=== PATIENT | female | born 1965 | race American Indian/Alaskan Native ===

== ENCOUNTER 2017-06-04 12:59 | Emergency (ER) | payer SELFPAY ==
[2017-06-04 13:10] VITALS: BP 181/117
--- NOTE | 2017-06-07 14:57 | ED Elopement Review ---
ED Pt Elopement review - Call Back decision Pt Call Back Decision: Pt to F/U with PMD
--- NOTE | 2017-06-08 15:54 | Vascular Lab Report ---
Left Lower Extremity Venous Duplex Study: Reason for Exam: Pain and swelling of the left lower extremity. Comments on the Right: A limited duplex study was done of the proximal veins of the right lower extremity. All veins visualized are freely compressible without evidence of internal echogenicity. Flow is spontaneous and phasic throughout. No evidence of acute or chronic thrombus is seen in any of the vessels visualized. Comments on the Left: All veins visualized are freely compressible without evidence of internal echogenicity. Flow is spontaneous and phasic throughout. No evidence of acute or chronic thrombus is seen in any of the vessels visualized. Impression: No evidence of acute or chronic deep venous thrombosis in the left lower extremity. Soft tissue changes in the left popliteal fossa
== END 2017-06-04 16:50 | disposition left against medical advice (07) ==
LOC: ED 12:59
DX: M79.89 Other specified soft tissue disorders (principal); Z53.21 Procedure and treatment not carried out due to patient leaving prior to being seen by health care provider

== ENCOUNTER 2018-02-23 16:05 | Observation (INO) | payer SELFPAY ==
--- NOTE | 2018-02-23 16:48 | Cat Scan Report ---
FINAL REPORT EXAM: CT HEAD/BRAIN WO CON HISTORY: neuro deficits < 6hrs or sx present upon awakening TECHNIQUE: Noncontrast CT axial images of the brain. PRIORS: None. FINDINGS: No parenchymal mass, mass effect, hemorrhage, midline shift or hydrocephalus. No evidence of acute cortical infarct. No abnormal, extra-axial fluid or air collection. Osseous calvarium grossly intact. IMPRESSION: 1. No acute intracranial findings. Please note that MRI is a far more sensitive modality in the evaluation of acute cerebral ischemia, and followup may be warranted.
[2018-02-23 17:01] LABS: Basophils # (Auto) 0.1 K/mm3 (0.0-0.1); Basophils % (Auto) 1.3 % (0.0-1.8); Eosinophils # (Auto) 0.3 K/mm3 (0.0-0.4); Eosinophils % (Auto) 3.2 % (0.0-4.3); Hematocrit 43.7 % (30.3-42.9); Hemoglobin 15.2 gm/dl (10.1-14.3); Lymphocytes # (Auto) 2.6 K/mm3 (1.2-5.4); Mean Corpuscular HGB Conc 35 % (30-34); Mean Corpuscular Hemoglobin 32 pg (28-32); Mean Corpuscular Volume 93 fl (79-97); Monocytes # (Auto) 0.6 K/mm3 (0.0-0.8); Monocytes % (Auto) 7.1 % (0.0-7.3); Platelet Count 223 K/mm3 (140-440); Red Cell Distribution Width 12.8 % (13.2-15.2)
[2018-02-23 17:10] LABS: INR 0.88 (0.87-1.13)
[2018-02-23 17:11] LABS: Partial Thromboplastin Time 34.3 Sec. (24.2-36.6)
[2018-02-23 17:17] LABS: BUN/Creatinine Ratio 18; Blood Urea Nitrogen 11 mg/dL (7-17); Calcium 8.9 mg/dL (8.4-10.2); Hemolysis Index 27
--- NOTE | 2018-02-23 17:28 | Emergency Department Report ---
ED Neuro Deficit HPI - General Chief Complaint: Weakness Stated Complaint: FATIGUE Time Seen by Provider: 02/23/18 17:00 Source: patient Mode of arrival: Ambulatory Limitations: No Limitations - History of Present Illness Initial Comments: At 2 pm, the patient developed right hand weakness/numbness after carrying groceries. She also developed bilateral blurry vision that was worse when she stood up. Patient has been noncompliant with her blood pressure medications for the past 2 weeks. This has never happened before. At time of presentation to the ER, patient has started to feel better. - Related Data Home Medications: Previous Rx's Medication Instructions Recorded Last Taken Type Pravastatin Sodium [Pravastatin] 20 mg PO QHS #30 tablet 02/02/14 Unknown Rx Ranitidine HCl [Zantac] 150 mg PO BID #60 tablet 03/19/14 Unknown Rx Aspirin EC [Aspirin Enteric Coated 81 mg PO QDAY #30 tablet. 12/07/16 Unknown Rx TAB] Glimepiride [Amaryl] 1 mg PO QDDIAB #60 tablet 12/09/16 Unknown Rx Hydrochlorothiazide [HCTZ] 25 mg PO QDAY #30 tablet 12/09/16 Unknown Rx Losartan [Cozaar] 100 mg PO QDAY #60 tablet 12/09/16 Unknown Rx NIFEdipine XL [Procardia Xl] 60 mg PO QDAY #30 tablet 12/09/16 Unknown Rx metFORMIN [Glucophage] 500 mg PO BIDDIAB #60 tablet 12/09/16 Unknown Rx Allergies/Adverse Reactions: Allergies Allergy/AdvReac Type Severity Reaction Status Date / Time No Known Allergies Allergy Unverified 08/09/13 10:18 ED Review of Systems ROS: Stated complaint: FATIGUE Other details as noted in HPI Comment: All other systems reviewed and negative Eyes: vision change Neurological: headache, weakness, numbness ED Past Medical Hx - Past Medical History Hx Hypertension: Yes Hx Congestive Heart Failure: No Hx Diabetes: Yes Hx Asthma: Yes Hx COPD: No Additional medical history: anemia, bronchitis - Surgical History Additional Surgical History: c section x 2 - Social History Smoking Status: Current Every Day Smoker Substance Use Type: None, Other - Medications Home Medications: Home Medications Medication Instructions Recorded Confirmed Last Taken Type Pravastatin Sodium [Pravastatin] 20 mg PO QHS #30 tablet 02/02/14 12/09/16 Unknown Rx Ranitidine HCl [Zantac] 150 mg PO BID #60 tablet 03/19/14 12/09/16 Unknown Rx Aspirin EC [Aspirin Enteric Coated 81 mg PO QDAY #30 tablet. 12/07/16 Unknown Rx TAB] Glimepiride [Amaryl] 1 mg PO QDDIAB #60 tablet 12/09/16 Unknown Rx Hydrochlorothiazide [HCTZ] 25 mg PO QDAY #30 tablet 12/09/16 Unknown Rx Losartan [Cozaar] 100 mg PO QDAY #60 tablet 12/09/16 Unknown Rx NIFEdipine XL [Procardia Xl] 60 mg PO QDAY #30 tablet 12/09/16 Unknown Rx metFORMIN [Glucophage] 500 mg PO BIDDIAB #60 tablet 12/09/16 Unknown Rx ED Neuro Physical Exam - General Limitations: No Limitations General appearance: alert, in no apparent distress Suspected Stroke: Yes - Head Head exam: Present: atraumatic, normocephalic - Eye Eye exam: Present: normal appearance - ENT ENT exam: Present: mucous membranes moist - Neck Neck exam: Present: normal inspection - Respiratory Respiratory exam: Present: normal lung sounds bilaterally. Absent: respiratory distress - Cardiovascular Cardiovascular Exam: Present: regular rate, normal rhythm. Absent: systolic murmur, diastolic murmur, rubs, gallop - GI/Abdominal GI/Abdominal exam: Present: soft, normal bowel sounds - Extremities Exam Extremities exam: Present: normal inspection - Back Exam Back exam: Present: normal inspection - Neurological Exam Neurological exam: Present: alert, oriented X3 - NIHSS Assessment Interval: Baseline 1a. Level of Consciousness: alert 1b. LOC Questions: answers correctly 1c. LOC Commands: performs tasks correctly 2. Best Gaze: normal 3. Visual: no visual loss 4. Facial Palsy: normal symmetrical movement 5b. Motor Arm Right: no drift 5a. Motor Arm Left: no drift 6a. Motor Leg Left: no drift 6b. Motor Leg Right: no drift 7. Limb Ataxia: absent 8. Sensory: normal 9. Best Language: no aphasia 10. Dysarthria: normal 11. Extinction/Inattention: no abnormality Total Score: 0 Stroke Severity: No Stroke Symptoms - Psychiatric Psychiatric exam: Present: normal affect, normal mood - Skin Skin exam: Present: warm, dry, intact, normal color. Absent: rash ED Course Vital Signs 02/23/18 02/23/18 02/23/18 16:21 16:38 16:56 Temperature 98.8 F Pulse Rate 92 H 76 80 Respiratory 16 18 Rate Blood Pressure 190/107 Blood Pressure 184/101 [Left] O2 Sat by Pulse 97 98 Oximetry - Lab Data Result diagrams: 02/23/18 16:44 02/23/18 16:44 Lab Results 02/23/18 02/23/18 02/23/18 Range/Units 16:19 16:44 16:44 WBC 8.0 (4.5-11.0) K/mm3 RBC 4.70 (3.65-5.03) M/mm3 Hgb 15.2 H (10.1-14.3) gm/dl Hct 43.7 H (30.3-42.9) % MCV 93 (79-97) fl MCH 32 (28-32) pg MCHC 35 H (30-34) % RDW 12.8 L (13.2-15.2) % Plt Count 223 (140-440) K/mm3 Lymph % (Auto) 33.0 (13.4-35.0) % [place] % (Auto) 7.1 (0.0-7.3) % Eos % (Auto) 3.2 (0.0-4.3) % Baso % (Auto) 1.3 (0.0-1.8) % Lymph # 2.6 (1.2-5.4) K/mm3 [place] # 0.6 (0.0-0.8) K/mm3 Eos # 0.3 (0.0-0.4) K/mm3 Baso # 0.1 (0.0-0.1) K/mm3 Seg Neutrophils % 55.4 (40.0-70.0) % Seg Neutrophils # 4.4 (1.8-7.7) K/mm3 PT 12.4 (12.2-14.9) Sec. INR 0.88 (0.87-1.13) APTT 34.3 (24.2-36.6) Sec. Thrombin Time (15.1-19.6) Sec. Sodium (137-145) mmol/L Potassium (3.6-5.0) mmol/L Chloride (98-107) mmol/L Carbon Dioxide (22-30) mmol/L Anion Gap mmol/L BUN (7-17) mg/dL Creatinine (0.7-1.2) mg/dL Estimated GFR ml/min BUN/Creatinine Ratio % Glucose (65-100) mg/dL POC Glucose 116 H (70-105) Calcium (8.4-10.2) mg/dL Troponin T (0.00-0.029) ng/mL 02/23/18 02/23/18 Range/Units 16:44 16:44 WBC (4.5-11.0) K/mm3 RBC (3.65-5.03) M/mm3 Hgb (10.1-14.3) gm/dl Hct (30.3-42.9) % MCV (79-97) fl MCH (28-32) pg MCHC (30-34) % RDW (13.2-15.2) % Plt Count (140-440) K/mm3 Lymph % (Auto) (13.4-35.0) % [place] % (Auto) (0.0-7.3) % Eos % (Auto) (0.0-4.3) % Baso % (Auto) (0.0-1.8) % Lymph # (1.2-5.4) K/mm3 [place] # (0.0-0.8) K/mm3 Eos # (0.0-0.4) K/mm3 Baso # (0.0-0.1) K/mm3 Seg Neutrophils % (40.0-70.0) % Seg Neutrophils # (1.8-7.7) K/mm3 PT (12.2-14.9) Sec. INR (0.87-1.13) APTT (24.2-36.6) Sec. Thrombin Time 15.6 (15.1-19.6) Sec. Sodium 142 (137-145) mmol/L Potassium 4.2 (3.6-5.0) mmol/L Chloride 103.5 (98-107) mmol/L Carbon Dioxide 28 (22-30) mmol/L Anion Gap 15 mmol/L BUN 11 (7-17) mg/dL Creatinine 0.6 L (0.7-1.2) mg/dL Estimated GFR > 60 ml/min BUN/Creatinine Ratio 18 % Glucose 101 H (65-100) mg/dL POC Glucose (70-105) Calcium 8.9 (8.4-10.2) mg/dL Troponin T < 0.010 (0.00-0.029) ng/mL - EKG Data -: EKG Interpreted by Me EKG shows normal: sinus rhythm, axis, intervals, QRS complexes, ST-T waves Rate: normal Interpretation: no acute changes - Radiology Data Radiology results: report reviewed - Medical Decision Making 52-year-old female with past medical history of hypertension, diabetes that presents with right hand numbness/weakness. The symptoms have resolved at time of ER presentation. NIH stroke scale was 0. A stroke alert was activated when the patient arrived. CT head was negative. Patient is hypertensive. She was given her home medications since she hasn't taken them in the past 2 weeks. Discussed with the neurologist, who recommended that the patient be admitted for TIA workup. She remained hemodynamically stable in the ER. Critical care attestation.: If time is entered above; I have spent that time in minutes in the direct care of this critically ill patient, excluding procedure time. ED Disposition Clinical Impression: TIA (transient ischemic attack) Disposition: DC-09 OP ADMIT IP TO THIS HOSP Is pt being admited?: No Condition: Stable
[2018-02-23] MEDS ORDERED: PROCARDIA XL PO ONE (17:33)
[2018-02-23] MEDS ORDERED: HCTZ PO ONE (17:33)
[2018-02-23] MEDS ORDERED: COZAAR PO ONE (17:33)
[2018-02-23 18:37] VITALS: BP 198/113
== END 2018-02-23 20:30 | disposition left against medical advice (07) ==
LOC: ED 16:05 → 4A 17:46
PROVIDERS: ADMIT Internal Medicine; ATTEND Internal Medicine
DX: G45.9 Transient cerebral ischemic attack, unspecified (principal); I10 Essential (primary) hypertension; E11.9 Type 2 diabetes mellitus without complications
CPT/HCPCS: 36415; 70450; 80048; 82962; 84484; 85025; 85610; 85670; 85730; 93005; 93010; 99285; G0378

== ENCOUNTER 2018-03-03 07:19 | Emergency (ER) | payer OTHER ==
[2018-03-03 07:41] VITALS: BP 163/104
[2018-03-03 08:14] LABS: Basophils # (Auto) 0.1 K/mm3 (0.0-0.1); Basophils % (Auto) 1.3 % (0.0-1.8); Eosinophils # (Auto) 0.1 K/mm3 (0.0-0.4); Hematocrit 43.9 % (30.3-42.9); Hemoglobin 15.4 gm/dl (10.1-14.3); Lymphocytes # (Auto) 1.3 K/mm3 (1.2-5.4); Lymphocytes % (Auto) 20.5 % (13.4-35.0); Mean Corpuscular HGB Conc 35 % (30-34); Mean Corpuscular Hemoglobin 32 pg (28-32); Mean Corpuscular Volume 92 fl (79-97); Monocytes # (Auto) 0.8 K/mm3 (0.0-0.8); Monocytes % (Auto) 12.2 % (0.0-7.3); Platelet Count 173 K/mm3 (140-440); Red Blood Count 4.76 M/mm3 (3.65-5.03); Red Cell Distribution Width 12.7 % (13.2-15.2)
[2018-03-03 08:36] LABS: Alanine Aminotransferase 20 units/L (7-56); Albumin 3.9 g/dL (3.9-5); BUN/Creatinine Ratio 7; Blood Urea Nitrogen 5 mg/dL (7-17); Calcium 8.5 mg/dL (8.4-10.2); Hemolysis Index 11; Lipase 27 units/L (13-60)
[2018-03-03 08:46] LABS: Bacteria,Urine 1+ /HPF (Negative); Bilirubin,Urine SM (Negative); Blood,Urine NEG (Negative); Color,Urine Amber (Yellow); Mucus,Urine FEW /HPF
[2018-03-03 08:49] LABS: Ictotest,Urine Negative (Negative)
[2018-03-03] MEDS ORDERED: TORADOL IM ONE (09:39)
--- NOTE | 2018-03-03 09:43 | Emergency Department Report ---
ED General Adult HPI - General Chief complaint: Abdominal Pain Stated complaint: PAIN IN BOTTOM STOMACH Time Seen by Provider: 03/03/18 09:33 Source: patient Mode of arrival: Ambulatory Limitations: No Limitations - History of Present Illness Initial comments: Patient is 52 years old female with history of hypertension, diabetes and asthma. Patient presented to the ER complaining of cough, productive with greenish sputum for the last 3 days. Patient stated that she's been having abdominal pain also, minimally suprapubic associated with increase urinary frequency but she stated that she's been drinking a lot of fluid to. She denied any nausea vomiting. Patient also denied any chest pain or shortness of breath. - Related Data Previous Rx's Medication Instructions Recorded Last Taken Type Pravastatin Sodium [Pravastatin] 20 mg PO QHS #30 tablet 02/02/14 Unknown Rx Hydrochlorothiazide [HCTZ] 25 mg PO QDAY #30 tablet 12/09/16 Unknown Rx Losartan [Cozaar] 100 mg PO QDAY #60 tablet 12/09/16 Unknown Rx NIFEdipine XL [Procardia Xl] 60 mg PO QDAY #30 tablet 12/09/16 Unknown Rx metFORMIN [Glucophage] 500 mg PO BIDDIAB #60 tablet 12/09/16 Unknown Rx Allergies Allergy/AdvReac Type Severity Reaction Status Date / Time No Known Allergies Allergy Unverified 08/09/13 10:18 ED Review of Systems ROS: Stated complaint: PAIN IN BOTTOM STOMACH Other details as noted in HPI Comment: All other systems reviewed and negative Constitutional: fever. denies: chills Respiratory: cough. denies: orthopnea, shortness of breath, SOB with exertion, SOB at rest Cardiovascular: denies: chest pain, palpitations, dyspnea on exertion Gastrointestinal: abdominal pain. denies: nausea, vomiting, diarrhea, constipation, hematemesis, melena, hematochezia Genitourinary: denies: urgency, dysuria, frequency, hematuria, discharge Neurological: denies: headache, weakness, numbness, paresthesias, confusion ED Past Medical Hx - Past Medical History Previous Medical History?: Yes Hx Hypertension: Yes Hx Congestive Heart Failure: No Hx Diabetes: Yes Hx Asthma: Yes Hx COPD: No Additional medical history: anemia, bronchitis - Surgical History Past Surgical History?: Yes Additional Surgical History: c section x 2 - Social History Smoking Status: Current Every Day Smoker Substance Use Type: Alcohol, Prescribed - Medications Home Medications: Home Medications Medication Instructions Recorded Confirmed Last Taken Type Pravastatin Sodium [Pravastatin] 20 mg PO QHS #30 tablet 02/02/14 02/23/18 Unknown Rx Hydrochlorothiazide [HCTZ] 25 mg PO QDAY #30 tablet 12/09/16 02/23/18 Unknown Rx Losartan [Cozaar] 100 mg PO QDAY #60 tablet 12/09/16 02/23/18 Unknown Rx NIFEdipine XL [Procardia Xl] 60 mg PO QDAY #30 tablet 12/09/16 02/23/18 Unknown Rx metFORMIN [Glucophage] 500 mg PO BIDDIAB #60 tablet 12/09/16 02/23/18 Unknown Rx ED Physical Exam - General Limitations: No Limitations General appearance: alert, in no apparent distress - Head Head exam: Present: atraumatic, normocephalic, normal inspection - Eye Eye exam: Present: normal appearance - ENT ENT exam: Present: normal exam, mucous membranes moist - Neck Neck exam: Present: normal inspection, full ROM. Absent: tenderness, meningismus, lymphadenopathy, thyromegaly - Respiratory Respiratory exam: Present: normal lung sounds bilaterally. Absent: respiratory distress, wheezes, rales, rhonchi, stridor, accessory muscle use, decreased breath sounds, prolonged expiratory - Cardiovascular Cardiovascular Exam: Present: regular rate, normal rhythm, normal heart sounds - GI/Abdominal GI/Abdominal exam: Present: soft, normal bowel sounds. Absent: distended, tenderness, guarding, rebound, rigid, organomegaly, mass, bruit, pulsatile mass , hernia - Extremities Exam Extremities exam: Present: normal inspection, full ROM, normal capillary refill - Back Exam Back exam: Present: normal inspection, full ROM. Absent: tenderness, CVA tenderness (R), CVA tenderness (L), muscle spasm, paraspinal tenderness, vertebral tenderness, rash noted - Neurological Exam Neurological exam: Present: alert, oriented X3, CN II-XII intact, normal gait, reflexes normal - Skin Skin exam: Present: warm, intact, normal color ED Course Vital Signs 03/03/18 07:38 Temperature 100.2 F H Pulse Rate 115 H Respiratory 20 Rate Blood Pressure 163/104 O2 Sat by Pulse 94 Oximetry ED Medical Decision Making - Lab Data Result diagrams: 03/03/18 07:48 03/03/18 07:48 - Radiology Data Radiology results: report reviewed Referring Physician: CONNIE JAIMES Patient Name: SCOOBY ADEN Date of : 1965 Sex: Female Report Date: 2018-03-03 Report Status: Finalized Findings [facility] [address] [place] [address] XRay Report Signed Patient: SCOOBY ADEN MR#: [id number] : 1965 Acct:[id number] Age/Sex: 52 / F ADM Date: 03/03/18 Loc: ED Attending Dr: Ordering Physician: CONNIE JAIMES Date of Service: 03/03/18 Procedure(s): XR chest routine 2V Accession Number(s): [id number] cc: CONNIE JAIMES Fluoro Time In Minutes: ROUTINE CHEST, TWO VIEWS: HISTORY: Cough, fever. The trachea, heart, mediastinal contour, lung davila and bony thorax are unremarkable. No change since 12/06/16. IMPRESSION: Unremarkable chest x-ray. Transcribed By: TTR Dictated By: JEAN RAZA JR, MD Electronically Authenticated By: JEAN RAZA JR, MD Signed Date/Time: 03/03/18 1031 DD/ 1031 TD/TT: 03/03/18 1031 Critical care attestation.: If time is entered above; I have spent that time in minutes in the direct care of this critically ill patient, excluding procedure time. ED Disposition Clinical Impression: Acute bronchitis Disposition: DC-01 TO HOME OR SELFCARE Is pt being admited?: No Condition: Stable Instructions: Abdominal Pain (ED), Acute Bronchitis (ED) Referrals: PRIMARY CARE, [Primary Care Provider] - 3-5 Days
--- NOTE | 2018-03-03 10:41 | XRay Report ---
ROUTINE CHEST, TWO VIEWS: HISTORY: Cough, fever. The trachea, heart, mediastinal contour, lung davila and bony thorax are unremarkable. No change since 12/06/16. IMPRESSION: Unremarkable chest x-ray.
== END 2018-03-03 11:04 | disposition home or self-care (01) ==
LOC: ED 07:19
DX: J20.9 Acute bronchitis, unspecified (principal); I10 Essential (primary) hypertension; E11.9 Type 2 diabetes mellitus without complications; Z86.2 Personal history of diseases of the blood and blood-forming organs and certain disorders involving the immune mechanism; F17.200 Nicotine dependence, unspecified, uncomplicated
CPT/HCPCS: 36415; 71046; 80053; 81001; 83690; 85025; 96372; 99284; J1885

== ENCOUNTER 2018-06-20 06:19 | Emergency (ER) | payer SELFPAY ==
[2018-06-20] MEDS ORDERED: TYLENOL ONE (07:05)
[2018-06-20 07:14] VITALS: BP 187/118
[2018-06-20 07:56] LABS: Bilirubin,Urine NEG (Negative); Blood,Urine NEG (Negative); Color,Urine Yellow (Yellow); Mucus,Urine FEW /HPF; Protein,Urine <15 mg/dL mg/dL (Negative)
--- NOTE | 2018-06-20 08:08 | Emergency Department Report ---
ED General Adult HPI - General Chief complaint: Back Pain/Injury Stated complaint: BACK PAIN Time Seen by Provider: 06/20/18 08:08 Source: patient Mode of arrival: Ambulatory Limitations: No Limitations - History of Present Illness Initial comments: Patient reports low back and abdominal pain that started this am upon awakening Complaint: back and abdominal pain Onset/Timin -: hour(s) Location: back, abdomen Radiation: non-radiation Severity scale (0 -10): 8 Quality: aching Consistency: constant Improves with: none Worsens with: movement Associated Symptoms: denies other symptoms. denies: confusion, chest pain, cough, diaphoresis, fever/chills, headaches, loss of appetite, malaise, nausea/ vomiting, rash, seizure, shortness of breath, syncope, weakness Treatments Prior to Arrival: none - Related Data Previous Rx's Medication Instructions Recorded Last Taken Type Pravastatin Sodium [Pravastatin] 20 mg PO QHS #30 tablet 02/02/14 Unknown Rx Losartan [Cozaar] 100 mg PO QDAY #60 tablet 12/09/16 Unknown Rx NIFEdipine XL [Procardia Xl] 60 mg PO QDAY #30 tablet 12/09/16 Unknown Rx hydroCHLOROthiazide [HCTZ] 25 mg PO QDAY #30 tablet 12/09/16 Unknown Rx metFORMIN [Glucophage] 500 mg PO BIDDIAB #60 tablet 12/09/16 Unknown Rx guaiFENesin/CODEINE [Robitussin AC] 5 ml PO TID PRN #100 ml 03/03/18 Unknown Rx levoFLOXacin [Levaquin TAB] 500 mg PO QDAY #7 tablet 03/03/18 Unknown Rx Naproxen 500 mg PO BID PRN #20 tablet 06/20/18 Unknown Rx Allergies Allergy/AdvReac Type Severity Reaction Status Date / Time No Known Allergies Allergy Unverified 08/09/13 10:18 ED Review of Systems ROS: Stated complaint: BACK PAIN Other details as noted in HPI Constitutional: denies: chills, fever Eyes: denies: eye pain, eye discharge, vision change ENT: denies: ear pain, throat pain Respiratory: denies: cough, shortness of breath, wheezing Cardiovascular: denies: chest pain, palpitations Endocrine: no symptoms reported Gastrointestinal: abdominal pain. denies: nausea, diarrhea, constipation, hematemesis Genitourinary: denies: urgency, dysuria, discharge Musculoskeletal: back pain. denies: joint swelling, arthralgia Skin: denies: rash, lesions Neurological: denies: headache, weakness, paresthesias Psychiatric: denies: anxiety, depression Hematological/Lymphatic: denies: easy bleeding, easy bruising ED Past Medical Hx - Past Medical History Previous Medical History?: Yes Hx Hypertension: Yes Hx Congestive Heart Failure: No Hx Diabetes: Yes Hx Asthma: Yes Hx COPD: No Additional medical history: anemia, bronchitis - Surgical History Past Surgical History?: Yes Additional Surgical History: c section x 2 - Social History Smoking Status: Current Every Day Smoker Substance Use Type: None - Medications Home Medications: Home Medications Medication Instructions Recorded Confirmed Last Taken Type Pravastatin Sodium [Pravastatin] 20 mg PO QHS #30 tablet 02/02/14 02/23/18 Unknown Rx Losartan [Cozaar] 100 mg PO QDAY #60 tablet 12/09/16 02/23/18 Unknown Rx NIFEdipine XL [Procardia Xl] 60 mg PO QDAY #30 tablet 12/09/16 02/23/18 Unknown Rx hydroCHLOROthiazide [HCTZ] 25 mg PO QDAY #30 tablet 12/09/16 02/23/18 Unknown Rx metFORMIN [Glucophage] 500 mg PO BIDDIAB #60 tablet 12/09/16 02/23/18 Unknown Rx guaiFENesin/CODEINE [Robitussin AC] 5 ml PO TID PRN #100 ml 03/03/18 Unknown Rx levoFLOXacin [Levaquin TAB] 500 mg PO QDAY #7 tablet 03/03/18 Unknown Rx Naproxen 500 mg PO BID PRN #20 tablet 06/20/18 Unknown Rx ED Physical Exam - General Limitations: No Limitations General appearance: alert, in no apparent distress - Head Head exam: Present: atraumatic, normocephalic - ENT ENT exam: Present: normal orophraynx, mucous membranes moist - Neck Neck exam: Present: normal inspection, full ROM. Absent: tenderness, meningismus, lymphadenopathy, thyromegaly - Respiratory Respiratory exam: Present: normal lung sounds bilaterally. Absent: respiratory distress, wheezes, rales, rhonchi, stridor, chest wall tenderness, accessory muscle use, decreased breath sounds, prolonged expiratory - Cardiovascular Cardiovascular Exam: Present: regular rate, normal rhythm, normal heart sounds. Absent: bradycardia, tachycardia, systolic murmur, diastolic murmur - GI/Abdominal GI/Abdominal exam: Present: soft, tenderness (RLQ, suprapubic and LLQ), normal bowel sounds. Absent: guarding, rebound, rigid, diminished bowel sounds, hyperactive bowel sounds, hypoactive bowel sounds, organomegaly, mass, bruit, pulsatile mass, hernia - Extremities Exam Extremities exam: Present: normal inspection, full ROM, normal capillary refill. Absent: tenderness, pedal edema, joint swelling, calf tenderness - Back Exam Back exam: Present: normal inspection, full ROM, tenderness. Absent: CVA tenderness (R), CVA tenderness (L), muscle spasm, paraspinal tenderness, vertebral tenderness - Neurological Exam Neurological exam: Present: alert, oriented X3, CN II-XII intact, normal gait, reflexes normal. Absent: motor sensory deficit - Psychiatric Psychiatric exam: Present: normal affect, normal mood - Skin Skin exam: Present: warm, dry, intact, normal color. Absent: rash ED Course Vital Signs 06/20/18 06:59 Temperature 98 F Pulse Rate 97 H Respiratory 18 Rate Blood Pressure 187/118 O2 Sat by Pulse 99 Oximetry - Reevaluation(s) Reevaluation #1: 06/20/18 08:35 analgesic, laboratory and imaging studies ordered ED Medical Decision Making - Lab Data Result diagrams: 06/20/18 08:12 06/20/18 08:12 Temp Pulse Resp BP Pulse Ox 98 F 97 H 18 187/118 99 06/20/18 06:59 06/20/18 06:59 06/20/18 06:59 06/20/18 06:59 06/20/18 06:59 Lab Results 06/20/18 06/20/18 06/20/18 Range/Units 07:29 08:12 08:12 WBC 6.7 (4.5-11.0) K/mm3 RBC 4.75 (3.65-5.03) M/mm3 Hgb 15.0 H (10.1-14.3) gm/dl Hct 44.5 H (30.3-42.9) % MCV 94 (79-97) fl MCH 32 (28-32) pg MCHC 34 (30-34) % RDW 12.8 L (13.2-15.2) % Plt Count 212 (140-440) K/mm3 Lymph % (Auto) 38.2 H (13.4-35.0) % [place] % (Auto) 8.1 H (0.0-7.3) % Eos % (Auto) 2.8 (0.0-4.3) % Baso % (Auto) 1.2 (0.0-1.8) % Lymph # 2.6 (1.2-5.4) K/mm3 [place] # 0.5 (0.0-0.8) K/mm3 Eos # 0.2 (0.0-0.4) K/mm3 Baso # 0.1 (0.0-0.1) K/mm3 Seg Neutrophils % 49.7 (40.0-70.0) % Seg Neutrophils # 3.3 (1.8-7.7) K/mm3 Sodium 145 (137-145) mmol/L Potassium 4.0 (3.6-5.0) mmol/L Chloride 105.7 (98-107) mmol/L Carbon Dioxide 27 (22-30) mmol/L Anion Gap 16 mmol/L BUN 9 (7-17) mg/dL Creatinine 0.6 L (0.7-1.2) mg/dL Estimated GFR > 60 ml/min BUN/Creatinine Ratio 15 % Glucose 127 H (65-100) mg/dL Calcium 9.5 (8.4-10.2) mg/dL Total Bilirubin 0.30 (0.1-1.2) mg/dL AST 11 (5-40) units/L ALT 13 (7-56) units/L Alkaline Phosphatase 107 (35-129) units/L Total Protein 7.5 (6.3-8.2) g/dL Albumin 4.3 (3.9-5) g/dL Albumin/Globulin Ratio 1.3 % Urine Color Yellow (Yellow) Urine Turbidity Slightly-cloudy (Clear) Urine pH 6.0 (5.0-7.0) Ur Specific [place] 1.016 (1.003-1.030) Urine Protein <15 mg/dl (Negative) mg/dL Urine Glucose (UA) Neg (Negative) mg/dL Urine Ketones Neg (Negative) mg/dL Urine Blood Neg (Negative) Urine Nitrite Neg (Negative) Urine Bilirubin Neg (Negative) Urine Urobilinogen 2.0 (<2.0) mg/dL Ur Leukocyte Esterase Tr (Negative) Urine WBC (Auto) 6.0 (0.0-6.0) /HPF Urine RBC (Auto) 1.0 (0.0-6.0) /HPF U Epithel Cells (Auto) 6.0 (0-13.0) /HPF Urine Mucus Few /HPF Urine Yeast (Budding) Few /HPF Vital Signs 06/20/18 06:59 Temperature 98 F Pulse Rate 97 H Respiratory 18 Rate Blood Pressure 187/118 O2 Sat by Pulse 99 Oximetry - Radiology Data Radiology results: image reviewed HISTORY: abdominal pain. COMPARISON: none. FINDINGS: LIVER: Normal. BILIARY SYSTEM: Normal. PANCREAS: Normal. SPLEEN: Normal. KIDNEYS: Normal. AORTA/IVC: Normal. ASCITES: None. IMPRESSION: Unremarkable exam. - Medical Decision Making During the course of ED, analgesic, laboratory and radiology studies were ordered. All studies were unremarkable. Patient reports pain improvement with Toradol injection. She was sent home with a prescription for Naproxen, instructed to follow up with her PCP this week for reevaluation of elevated blood pressure reading, she verbalized understanding - Differential Diagnosis Abdominal Pain, Back Pain, UTI, Elevated Blood Pressure Reading Critical care attestation.: If time is entered above; I have spent that time in minutes in the direct care of this critically ill patient, excluding procedure time. ED Disposition Clinical Impression: Elevated blood pressure reading Abdominal pain Qualifiers: Abdominal location: lower abdomen, unspecified Qualified Code(s): R10.30 - Lower abdominal pain, unspecified Back pain Qualifiers: Back pain location: low back pain Disposition: - TO HOME OR SELFCARE Is pt being admited?: No Does the pt Need Aspirin: No Condition: Stable Instructions: Abdominal Pain (ED), Back Pain (ED), Hypertension (ED) Additional Instructions: Take medication as directed. Follow up with your PCP this week for evaluation of elevated blood pressure reading Prescriptions: Naproxen 500 mg PO BID PRN #20 tablet PRN Reason: Pain, Moderate (4-6) Referrals: PRIMARY CARE, [Primary Care Provider] - 3-5 Days [facility] [Outside] - 3-5 Days Forms: Work/School Release Form Time of Disposition: 09:49
[2018-06-20 08:24] LABS: Basophils # (Auto) 0.1 K/mm3 (0.0-0.1); Basophils % (Auto) 1.2 % (0.0-1.8); Eosinophils # (Auto) 0.2 K/mm3 (0.0-0.4); Eosinophils % (Auto) 2.8 % (0.0-4.3); Hematocrit 44.5 % (30.3-42.9); Lymphocytes # (Auto) 2.6 K/mm3 (1.2-5.4); Lymphocytes % (Auto) 38.2 % (13.4-35.0); Mean Corpuscular HGB Conc 34 % (30-34); Mean Corpuscular Hemoglobin 32 pg (28-32); Mean Corpuscular Volume 94 fl (79-97); Monocytes # (Auto) 0.5 K/mm3 (0.0-0.8); Monocytes % (Auto) 8.1 % (0.0-7.3); Platelet Count 212 K/mm3 (140-440); Red Blood Count 4.75 M/mm3 (3.65-5.03); Red Cell Distribution Width 12.8 % (13.2-15.2)
[2018-06-20 08:58] LABS: Alanine Aminotransferase 13 units/L (7-56); Albumin 4.3 g/dL (3.9-5); BUN/Creatinine Ratio 15; Blood Urea Nitrogen 9 mg/dL (7-17); Calcium 9.5 mg/dL (8.4-10.2); Hemolysis Index 10
[2018-06-20] MEDS ORDERED: TORADOL IM ONE (09:13)
--- NOTE | 2018-06-20 09:27 | Ultrasound Report ---
ULTRASOUND ABDOMEN COMPLETE: TECHNIQUE: Transabdominal ultrasound with color Doppler interrogation. HISTORY: abdominal pain. COMPARISON: none. FINDINGS: LIVER: Normal. BILIARY SYSTEM: Normal. PANCREAS: Normal. SPLEEN: Normal. KIDNEYS: Normal. AORTA/IVC: Normal. ASCITES: None. IMPRESSION: Unremarkable exam.
== END 2018-06-20 10:06 | disposition home or self-care (01) ==
LOC: ED 06:19
DX: R10.30 Lower abdominal pain, unspecified (principal); M54.5 Low back pain; R03.0 Elevated blood-pressure reading, without diagnosis of hypertension; I10 Essential (primary) hypertension; E11.9 Type 2 diabetes mellitus without complications; F17.200 Nicotine dependence, unspecified, uncomplicated; J45.909 Unspecified asthma, uncomplicated; Z86.2 Personal history of diseases of the blood and blood-forming organs and certain disorders involving the immune mechanism; Z79.899 Other long term (current) drug therapy
CPT/HCPCS: 36415; 76700; 80053; 81001; 85025; 96372; 99284; J1885

== ENCOUNTER 2019-09-07 16:42 | Emergency (ER) | payer SELFPAY ==
--- NOTE | 2019-09-07 16:59 | Emergency Department Report ---
Blank Doc - Documentation Documentation: 53-year-old female that presents with dizziness, headache, and uncontrolled HTN. Patient stated she is not compliant with BP meds. This initial assessment/diagnostic orders/clinical plan/treatment(s) is/are subject to change based on patient's health status, clinical progression and re- assessment by fellow clinical providers in the ED. Further treatment and workup at subsequent clinical providers discretion. Patient/guardians urged not to elope from the ED as their condition may be serious if not clinically assessed and managed. Initial orders include: 1- Patient sent to [facility] for further evaluation and treatment 2- labs 3- UA 4- EKG
[2019-09-07 17:58] LABS: Basophils # (Auto) 0.1 K/mm3 (0.0-0.1); Basophils % (Auto) 0.8 % (0.0-1.8); Eosinophils # (Auto) 0.2 K/mm3 (0.0-0.4); Eosinophils % (Auto) 2.9 % (0.0-4.3); Hematocrit 40.4 % (30.3-42.9); Hemoglobin 13.6 gm/dl (10.1-14.3); Lymphocytes # (Auto) 2.9 K/mm3 (1.2-5.4); Lymphocytes % (Auto) 37.4 % (13.4-35.0); Mean Corpuscular HGB Conc 34 % (30-34); Mean Corpuscular Volume 95 fl (79-97); Monocytes # (Auto) 0.7 K/mm3 (0.0-0.8); Monocytes % (Auto) 8.6 % (0.0-7.3); Platelet Count 204 K/mm3 (140-440); Red Blood Count 4.25 M/mm3 (3.65-5.03)
[2019-09-07 18:10] LABS: BUN/Creatinine Ratio 22; Blood Urea Nitrogen 11 mg/dL (7-17); Calcium 8.7 mg/dL (8.4-10.2); Hemolysis Index 12
[2019-09-07] MEDS ORDERED: ACETAMINOPHEN 500 MG TAB PO ONE (19:58)
[2019-09-07] MEDS ORDERED: ASPIRIN 325 MG TAB PO ONE (19:58)
[2019-09-07 20:17] LABS: Bacteria,Urine 1+ /HPF (Negative); Bilirubin,Urine NEG (Negative); Blood,Urine NEG (Negative); Color,Urine Yellow (Yellow); Mucus,Urine FEW /HPF; Protein,Urine <15 mg/dL mg/dL (Negative); WBC,Urine < 1.0 /HPF (0.0-6.0)
[2019-09-07] MEDS ORDERED: amLODIPine 5 MG TAB PO ONE (21:15)
--- NOTE | 2019-09-07 21:58 | Emergency Department Report ---
ED General Adult HPI - General Chief complaint: High BP Stated complaint: BLOOD PRESSURE CHECK Time Seen by Provider: 09/07/19 17:00 Source: patient Mode of arrival: Ambulatory Limitations: No Limitations - History of Present Illness Initial comments: Patient is a 53-year-old -Spanish female with a history of hypertension and [id number] diabetes who presents to the ED with complaint of acute onset persistent headache and lightheadedness for the last 12 hours intermittently. Patient states that she has not taken her blood pressure medications for over 2 months after she ran out of worked she was taking, and the prescription she received are too expensive for her to afford. Patient denies chest pain, shortness of breath, dizziness, nausea, vomiting, syncope, palpitations, neck pain or abdominal pain and change in vision. MD Complaint: Lightheadedness, elevated BP; headache -: Sudden, hour(s) (12) Location: head Radiation: non-radiation Severity scale (0 -10): 4 Quality: aching, dull Consistency: constant Improves with: none Worsens with: none Associated Symptoms: denies other symptoms, headaches. denies: confusion, chest pain, cough, diaphoresis, fever/chills, loss of appetite, malaise, nausea/vomiting, rash, seizure, shortness of breath, syncope, weakness, other Treatments Prior to Arrival: none - Related Data Previous Rx's Medication Instructions Recorded Last Taken Type Pravastatin Sodium [Pravastatin] 20 mg PO QHS #30 tablet 02/02/14 Unknown Rx Losartan [Cozaar] 100 mg PO QDAY #60 tablet 12/09/16 Unknown Rx NIFEdipine XL [Procardia Xl] 60 mg PO QDAY #30 tablet 12/09/16 Unknown Rx hydroCHLOROthiazide [HCTZ] 25 mg PO QDAY #30 tablet 12/09/16 Unknown Rx metFORMIN [Glucophage] 500 mg PO BIDDIAB #60 tablet 12/09/16 Unknown Rx guaiFENesin/CODEINE [Robitussin AC] 5 ml PO TID PRN #100 ml 03/03/18 Unknown Rx levoFLOXacin [Levaquin TAB] 500 mg PO QDAY #7 tablet 03/03/18 Unknown Rx Cyclobenzaprine [Flexeril 10 MG 10 mg PO QHS #30 tablet 08/17/18 Unknown Rx TAB] Naproxen 500 mg PO BID PRN #20 tablet 08/17/18 Unknown Rx Ibuprofen [Motrin] 600 mg PO Q8H PRN #20 tablet 09/07/19 Unknown Rx Lisinopril/Hydrochlorothiazide 1 tab PO QDAY #30 tab 09/07/19 Unknown Rx [Zestoretic 20-25 mg] Allergies Allergy/AdvReac Type Severity Reaction Status Date / Time No Known Allergies Allergy Unverified 08/09/13 10:18 ED Review of Systems ROS: Stated complaint: BLOOD PRESSURE CHECK Other details as noted in HPI Constitutional: denies: chills, fever Eyes: denies: eye pain, eye discharge, vision change ENT: denies: ear pain, throat pain Respiratory: denies: cough, shortness of breath, wheezing Cardiovascular: denies: chest pain, palpitations Endocrine: no symptoms reported Gastrointestinal: denies: abdominal pain, nausea, diarrhea Genitourinary: denies: urgency, dysuria, discharge Musculoskeletal: denies: back pain, joint swelling, arthralgia Skin: denies: rash, lesions Neurological: headache, other (Lightheadedness). denies: weakness, paresthesias Psychiatric: anxiety. denies: depression Hematological/Lymphatic: denies: easy bleeding, easy bruising ED Past Medical Hx - Past Medical History Previous Medical History?: Yes Hx Hypertension: Yes Hx Congestive Heart Failure: No Hx Diabetes: Yes Hx Asthma: Yes Hx COPD: No Additional medical history: anemia, bronchitis - Surgical History Past Surgical History?: Yes Additional Surgical History: c section x 2 - Social History Smoking Status: Current Every Day Smoker Substance Use Type: None - Medications Home Medications: Home Medications Medication Instructions Recorded Confirmed Last Taken Type Pravastatin Sodium [Pravastatin] 20 mg PO QHS #30 tablet 02/02/14 02/23/18 Unknown Rx Losartan [Cozaar] 100 mg PO QDAY #60 tablet 12/09/16 02/23/18 Unknown Rx NIFEdipine XL [Procardia Xl] 60 mg PO QDAY #30 tablet 12/09/16 02/23/18 Unknown Rx hydroCHLOROthiazide [HCTZ] 25 mg PO QDAY #30 tablet 12/09/16 02/23/18 Unknown Rx metFORMIN [Glucophage] 500 mg PO BIDDIAB #60 tablet 12/09/16 02/23/18 Unknown Rx guaiFENesin/CODEINE [Robitussin AC] 5 ml PO TID PRN #100 ml 03/03/18 Unknown Rx levoFLOXacin [Levaquin TAB] 500 mg PO QDAY #7 tablet 03/03/18 Unknown Rx Cyclobenzaprine [Flexeril 10 MG 10 mg PO QHS #30 tablet 08/17/18 Unknown Rx TAB] Naproxen 500 mg PO BID PRN #20 tablet 08/17/18 Unknown Rx Ibuprofen [Motrin] 600 mg PO Q8H PRN #20 tablet 09/07/19 Unknown Rx Lisinopril/Hydrochlorothiazide 1 tab PO QDAY #30 tab 09/07/19 Unknown Rx [Zestoretic 20-25 mg] ED Physical Exam - General Limitations: No Limitations General appearance: alert, in no apparent distress - Head Head exam: Present: atraumatic, normocephalic, normal inspection - Eye Eye exam: Present: normal appearance, PERRL, EOMI Pupils: Present: normal accommodation - ENT ENT exam: Present: normal exam, normal orophraynx, mucous membranes moist, TM's normal bilaterally, normal external ear exam - Neck Neck exam: Present: normal inspection, full ROM - Respiratory Respiratory exam: Present: normal lung sounds bilaterally. Absent: respiratory distress, wheezes, rales, rhonchi, chest wall tenderness, accessory muscle use, prolonged expiratory - Cardiovascular Cardiovascular Exam: Present: normal rhythm, tachycardia. Absent: systolic murmur, diastolic murmur, rubs, gallop - GI/Abdominal GI/Abdominal exam: Present: soft, normal bowel sounds. Absent: tenderness, rigid, hypoactive bowel sounds, organomegaly - Extremities Exam Extremities exam: Present: normal inspection, full ROM, normal capillary refill - Back Exam Back exam: Present: normal inspection, full ROM. Absent: tenderness, CVA tenderness (L), muscle spasm, vertebral tenderness - Neurological Exam Neurological exam: Present: alert, oriented X3, CN II-XII intact, normal gait, reflexes normal - Psychiatric Psychiatric exam: Present: normal affect, normal mood - Skin Skin exam: Present: warm, dry, intact, normal color. Absent: rash ED Course Vital Signs 09/07/19 09/07/19 09/07/19 16:58 20:16 21:27 Temperature 98.5 F 97.6 F Pulse Rate 100 H 76 Respiratory 18 18 20 Rate Blood Pressure 196/104 Blood Pressure 192/88 [Left] O2 Sat by Pulse 98 98 Oximetry ED Medical Decision Making - Lab Data Result diagrams: 09/07/19 17:35 09/07/19 17:35 - EKG Data EKG shows normal: sinus rhythm Rate: normal - EKG Data 09/07/19 22:00 EKG shows normal sinus rhythm with ventricular rate of 79 beats per minute and no ST or T-wave abnormalities. - Medical Decision Making This is a 53-year-old female who presented to the ED with lightheadedness and headache and uncontrolled hypertension because of noncompliance with medication. In the ED, patient is alert and oriented 3 in destruction and distress but extremely anxious. EKG shows normal sinus rhythm with a ventricular rate of [address] or T-wave abnormalities. Lab test results were reviewed and are nonactionable including troponin levels. Patient was treated in the ED with Norvasc 10 mg by mouth 1. Patient declined chest x-ray. On reevaluation, patient's headache resolved as well as lightheadedness. Patient was discharged home on prescription for lisinopril-HCTZ 20 mg-25 mg daily and was advised to follow-up with [facility] to establish care and for reevaluation. Patient was advised to return to the ED immediately if symptoms get worse. - Differential Diagnosis SAH; CAD; Hypertensive crisis; Dehydration; Hyperglycemia Critical care attestation.: If time is entered above; I have spent that time in minutes in the direct care of this critically ill patient, excluding procedure time. ED Disposition Clinical Impression: Uncontrolled stage 2 hypertension Headache, tension-type Qualifiers: Headache chronicity pattern: acute headache Intractability: not intractable Qualified Code(s): G44.209 - Tension-type headache, unspecified, not intractable Disposition: DC-01 TO HOME OR SELFCARE Is pt being admited?: No Does the pt Need Aspirin: No Condition: Stable Instructions: Hypertension (ED), Acute Headache (ED) Additional Instructions: Take medications for hypertension as advised, follow up with [facility] to establish care. Return to the ED immediately if symptoms get worse. Prescriptions: Ibuprofen [Motrin] 600 mg PO Q8H PRN #20 tablet PRN Reason: Pain Lisinopril/Hydrochlorothiazide [Zestoretic 20-25 mg] 1 tab PO QDAY #30 tab Referrals: [facility] [Outside] - 3-5 Days Time of Disposition: 21:53 Print Language: ARMENIAN
[2019-09-07 22:49] VITALS: BP 188/99
== END 2019-09-07 22:00 | disposition home or self-care (01) ==
LOC: ED 16:42
DX: I10 Essential (primary) hypertension (principal); G44.209 Tension-type headache, unspecified, not intractable; E11.9 Type 2 diabetes mellitus without complications; J45.909 Unspecified asthma, uncomplicated; F17.200 Nicotine dependence, unspecified, uncomplicated
CPT/HCPCS: 36415; 80048; 81001; 84484; 85025; 93005; 93010; 99283

== ENCOUNTER 2020-04-11 14:56 | Emergency (ER) | payer SELFPAY | END 2020-04-11 16:00 | disposition left against medical advice (07) | LOC: ED 14:56 | DX: H92.09 Otalgia, unspecified ear (principal); Z53.21 Procedure and treatment not carried out due to patient leaving prior to being seen by health care provider ==

== ENCOUNTER 2020-07-09 10:06 | Emergency (ER) | payer SELFPAY ==
[2020-07-09 10:15] VITALS: BP 159/96
[2020-07-09] MEDS ORDERED: DIPHtheria,PERTUSSIS(ACELL),TETANUS VACCINE/PF 0.5 ML VIAL IM ONE (12:17)
[2020-07-09] MEDS ORDERED: HYDROcodone/ACETAMINOPHEN 5-325 MG TAB PO ONE (12:17)
[2020-07-09] MEDS ORDERED: NEOMY 3.5 MG/BACIT 400 UNITS/POLY B 5000 UNITS/GM OINT PACKET TP ONE (12:21)
--- NOTE | 2020-07-09 12:24 | Emergency Department Report ---
ED Fall HPI - General Chief Complaint: Fall Stated Complaint: SWOLLEN MOUTH Time Seen by Provider: 07/09/20 11:32 Source: patient Mode of arrival: Ambulatory - History of Present Illness Initial Comments: Patient is a 54-year-old female presents emergency room with complaints of a fall that occurred yesterday around 2:30 PM. Patient states that she was chased by a dog and she fell and hit her face against the concrete. she denies being bit by the dog. She has abrasions to the end of her nose, above the lip, and to the lower lip. She states that also knocked out one of her teeth. Patient states that she also has abrasions to the bilateral knees. She states that she is ambulatory without difficulty and is able to fully move the knees. She is unsure of her last tetanus immunization. She denies any loss of consciousness, vision changes, numbness, weakness, bowel or bladder incontinence, any other injury. She has a past medical history of hypertension and diabetes. No allergies to medications. - Related Data Previous Rx's Medication Instructions Recorded Last Taken Type Pravastatin Sodium [Pravastatin] 20 mg PO QHS #30 tablet 02/02/14 Unknown Rx Losartan [Cozaar] 100 mg PO QDAY #60 tablet 12/09/16 Unknown Rx NIFEdipine XL [Procardia Xl] 60 mg PO QDAY #30 tablet 12/09/16 Unknown Rx hydroCHLOROthiazide [HCTZ] 25 mg PO QDAY #30 tablet 12/09/16 Unknown Rx metFORMIN [Glucophage] 500 mg PO BIDDIAB #60 tablet 12/09/16 Unknown Rx guaiFENesin/CODEINE [Robitussin AC] 5 ml PO TID PRN #100 ml 03/03/18 Unknown Rx levoFLOXacin [Levaquin TAB] 500 mg PO QDAY #7 tablet 03/03/18 Unknown Rx Cyclobenzaprine [Flexeril 10 MG 10 mg PO QHS #30 tablet 08/17/18 Unknown Rx TAB] Naproxen 500 mg PO BID PRN #20 tablet 08/17/18 Unknown Rx Ibuprofen [Motrin] 600 mg PO Q8H PRN #20 tablet 09/07/19 Unknown Rx Lisinopril/Hydrochlorothiazide 1 tab PO QDAY #30 tab 09/07/19 Unknown Rx [Zestoretic 20-25 mg] Acetaminophen [Tylenol] 650 mg PO Q8HR PRN #20 capsule 07/09/20 Unknown Rx Neomycin/Bacitracin/Polymyxinb 1 applicatio TP BID #14 oint...g. 07/09/20 Unknown Rx [Triple Antibiotic Ointment] cephALEXin [Keflex] 500 mg PO QID 7 Days #28 cap 07/09/20 Unknown Rx traMADoL [Ultram 50 MG tab] 50 mg PO Q6HR PRN #10 tablet 07/09/20 Unknown Rx Allergies Allergy/AdvReac Type Severity Reaction Status Date / Time No Known Allergies Allergy Unverified 08/09/13 10:18 ED Review of Systems ROS: Stated complaint: SWOLLEN MOUTH Other details as noted in HPI Comment: All other systems reviewed and negative ED Past Medical Hx - Past Medical History Previous Medical History?: Yes Hx Hypertension: Yes Hx Congestive Heart Failure: No Hx Diabetes: Yes Hx Asthma: Yes Hx COPD: No Additional medical history: anemia, bronchitis - Surgical History Past Surgical History?: No Additional Surgical History: c section x 2 - Social History Smoking Status: Current Every Day Smoker Substance Use Type: None - Medications Home Medications: Home Medications Medication Instructions Recorded Confirmed Last Taken Type Pravastatin Sodium [Pravastatin] 20 mg PO QHS #30 tablet 02/02/14 02/23/18 Unknown Rx Losartan [Cozaar] 100 mg PO QDAY #60 tablet 12/09/16 02/23/18 Unknown Rx NIFEdipine XL [Procardia Xl] 60 mg PO QDAY #30 tablet 12/09/16 02/23/18 Unknown Rx hydroCHLOROthiazide [HCTZ] 25 mg PO QDAY #30 tablet 12/09/16 02/23/18 Unknown Rx metFORMIN [Glucophage] 500 mg PO BIDDIAB #60 tablet 12/09/16 02/23/18 Unknown Rx guaiFENesin/CODEINE [Robitussin AC] 5 ml PO TID PRN #100 ml 03/03/18 Unknown Rx levoFLOXacin [Levaquin TAB] 500 mg PO QDAY #7 tablet 03/03/18 Unknown Rx Cyclobenzaprine [Flexeril 10 MG 10 mg PO QHS #30 tablet 08/17/18 Unknown Rx TAB] Naproxen 500 mg PO BID PRN #20 tablet 08/17/18 Unknown Rx Ibuprofen [Motrin] 600 mg PO Q8H PRN #20 tablet 09/07/19 Unknown Rx Lisinopril/Hydrochlorothiazide 1 tab PO QDAY #30 tab 09/07/19 Unknown Rx [Zestoretic 20-25 mg] Acetaminophen [Tylenol] 650 mg PO Q8HR PRN #20 capsule 07/09/20 Unknown Rx Neomycin/Bacitracin/Polymyxinb 1 applicatio TP BID #14 oint...g. 07/09/20 Unknown Rx [Triple Antibiotic Ointment] cephALEXin [Keflex] 500 mg PO QID 7 Days #28 cap 07/09/20 Unknown Rx traMADoL [Ultram 50 MG tab] 50 mg PO Q6HR PRN #10 tablet 07/09/20 Unknown Rx ED Physical Exam - General Limitations: No Limitations General appearance: alert, in no apparent distress - Head Head exam: Present: other (abrasion present to the distal end of the nose, no nasal bone ttp, septum is midline, no epistaxis, abrasion present above the lip, abrasion present to the lower lip with purulent drainage and erythema surrounding the lower lip with mild edema present, there is a missing central incisor with irritation of the adjacent gumline) - Eye Eye exam: Present: normal appearance, PERRL, EOMI. Absent: periorbital swelling, periorbital tenderness - ENT ENT exam: Present: mucous membranes moist - Neck Neck exam: Present: normal inspection, full ROM. Absent: tenderness - Respiratory Respiratory exam: Absent: respiratory distress, accessory muscle use - Extremities Exam Extremities exam: Present: other (small very superficial abrasions present to the bilateral knees, no bony ttp of the bilateral knees, FROM of the BLE, neurovascularly intact) - Neurological Exam Neurological exam: Present: alert, oriented X3, CN II-XII intact, normal gait. Absent: motor sensory deficit - Psychiatric Psychiatric exam: Present: normal affect, normal mood - Skin Skin exam: Present: warm, dry ED Course Vital Signs 07/09/20 10:11 Temperature 98.7 F Pulse Rate 119 H Respiratory 20 Rate Blood Pressure 159/96 [Right] O2 Sat by Pulse 98 Oximetry ED Medical Decision Making - Medical Decision Making Patient is a 54-year-old female presents emergency room with complaints of a fall that occurred yesterday around 2:30 PM. Patient states that she was chased by a dog and she fell and hit her face against the concrete. she denies being bit by the dog. She has abrasions to the end of her nose, above the lip, and to the lower lip. She states that also knocked out one of her teeth. Patient states that she also has abrasions to the bilateral knees. She states that she is ambulatory without difficulty and is able to fully move the knees. She is unsure of her last tetanus immunization. She denies any loss of consciousness, vision changes, numbness, weakness, bowel or bladder incontinence, any other injury. She has a past medical history of hypertension and diabetes. No allergies to medications. initial vitals with tachycardia which improved upon repeat. on exam: abrasion present to the distal end of the nose, no nasal bone ttp, septum is midline, no epistaxis, abrasion present above the lip, abrasion present to the lower lip with purulent drainage and erythema surrounding the lower lip with mild edema present, there is a missing central incisor with irritation of the adjacent gumline, small very superficial abrasions present to the bilateral knees, no bony ttp of the bilateral knees, FROM of the BLE, neurovascularly intact. No signs of skull or bony facial injury. Nexus criteria negative, C-spine can be cleared clinically. [place] CT head rule is 0, CT head imaging not recommended. Wound care performed by otorhinolaryngologist. Patient given pain medication and tetanus immunization. Patient will be given prescription for Keflex, tramadol, Tylenol, triple antibiotic ointment. Advised patient to please use medication as prescribed. Please only use the antibiotic ointment on the skin but do not use in the mouth. Do not drive or operate heavy machinery while taking severe pain medication. Please keep areas clean, dry, covered. May wash with antibacterial soap and water and pat dry. No hot tub, no pool, no soaking in water. Showering is fine. Follow-up with a primary care doctor. Follow-up with a dentist. Return to the emergency room for any new or worsening symptoms. Critical care attestation.: If time is entered above; I have spent that time in minutes in the direct care o f this critically ill patient, excluding procedure time. ED Disposition Clinical Impression: Multiple abrasions Cellulitis Qualifiers: Site of cellulitis: mouth Qualified Code(s): K12.2 - Cellulitis and abscess of mouth Dental trauma Qualifiers: Encounter type: initial encounter Qualified Code(s): S09.93XA - Unspecified injury of face, initial encounter Disposition: DC-01 TO HOME OR SELFCARE Is pt being admited?: No Does the pt Need Aspirin: No Condition: Stable Instructions: Abrasion (ED), Cellulitis (ED), Acute dental trauma (ED) Additional Instructions: please use medication as prescribed. Please only use the antibiotic ointment on the skin but do not use in the mouth. Do not drive or operate heavy machinery while taking severe pain medication. Please keep areas clean, dry, covered. May wash with antibacterial soap and water and pat dry. No hot tub, no pool, no soaking in water. Showering is fine. Follow-up with a primary care doctor. Follow-up with a dentist. Return to the emergency room for any new or worsening symptoms. Prescriptions: cephALEXin [Keflex] 500 mg PO QID 7 Days #28 cap Neomycin/Bacitracin/Polymyxinb [Triple Antibiotic Ointment] 1 applicatio TP BID #14 oint...g. Acetaminophen [Tylenol] 650 mg PO Q8HR PRN #20 capsule PRN Reason: Pain, Moderate (4-6) traMADoL [Ultram 50 MG tab] 50 mg PO Q6HR PRN #10 tablet PRN Reason: Pain , Severe (7-10) Referrals: GENEVA OTERO MD [Staff Physician] - 2-3 Days [facility] [Provider Group] - 2-3 Days [facility] [Outside] - 2-3 Days [facility] [Outside] - 2-3 Days Time of Disposition: 12:27 Print Language: [place]
== END 2020-07-09 12:41 | disposition home or self-care (01) ==
LOC: ED 10:06
DX: S80.212A Abrasion, left knee, initial encounter (principal); S80.211A Abrasion, right knee, initial encounter; S09.93XA Unspecified injury of face, initial encounter; K12.2 Cellulitis and abscess of mouth; I10 Essential (primary) hypertension; E11.9 Type 2 diabetes mellitus without complications; J45.909 Unspecified asthma, uncomplicated; Z86.2 Personal history of diseases of the blood and blood-forming organs and certain disorders involving the immune mechanism; F17.200 Nicotine dependence, unspecified, uncomplicated; Z79.899 Other long term (current) drug therapy; X58.XXXA Exposure to other specified factors, initial encounter; Y93.89 Activity, other specified; Y92.89 Other specified places as the place of occurrence of the external cause; Y99.8 Other external cause status
CPT/HCPCS: 90471; 90715; 99282; A6250

== ENCOUNTER 2020-07-28 17:06 | Emergency (ER) | payer OTHER ==
[2020-07-28] MEDS ORDERED: cloNIDine 0.1 MG TAB PO ONE (17:36)
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
[2020-07-28 20:56] VITALS: BP 178/90
[2020-07-28] MEDS ORDERED: IBUPROFEN 800 MG TAB PO ONE (21:29)
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
== END 2020-07-28 22:04 | disposition home or self-care (01) ==
LOC: ED 17:06
DX: I10 Essential (primary) hypertension (principal); E11.9 Type 2 diabetes mellitus without complications; J45.909 Unspecified asthma, uncomplicated; D64.9 Anemia, unspecified; F17.200 Nicotine dependence, unspecified, uncomplicated; Z98.890 Other specified postprocedural states; Z79.899 Other long term (current) drug therapy; V49.59XA Passenger injured in collision with other motor vehicles in traffic accident, initial encounter; Y92.410 Unspecified street and highway as the place of occurrence of the external cause; Y93.89 Activity, other specified; Y99.8 Other external cause status
CPT/HCPCS: 82962

== ENCOUNTER 2020-08-31 11:03 | Emergency (ER) | payer SELFPAY ==
[2020-08-31 11:10] VITALS: BP 176/103
[2020-08-31 12:44] LABS: Bilirubin,Urine NEG (Negative); Blood,Urine NEG (Negative); Color,Urine Yellow (Yellow); Hyaline Casts,Urine 1 /LPF; Mucus,Urine FEW /HPF; Protein,Urine <15 mg/dL mg/dL (Negative)
[2020-08-31 12:49] LABS: Alanine Aminotransferase 21 units/L (7-56); Albumin 4.2 g/dL (3.9-5); Blood Urea Nitrogen 10 mg/dL (7-17); Calcium 9.5 mg/dL (8.4-10.2); Hemolysis Index 7
[2020-08-31 13:06] LABS: Basophils # (Auto) 0.1 K/mm3 (0.0-0.1); Basophils % (Auto) 1.4 % (0.0-1.8); Eosinophils # (Auto) 0.1 K/mm3 (0.0-0.4); Eosinophils % (Auto) 1.4 % (0.0-4.3); Hematocrit 44.4 % (30.3-42.9); Lymphocytes # (Auto) 2.2 K/mm3 (1.2-5.4); Mean Corpuscular HGB Conc 34 % (30-34); Mean Corpuscular Volume 94 fl (79-97); Monocytes # (Auto) 0.5 K/mm3 (0.0-0.8); Monocytes % (Auto) 7.9 % (0.0-7.3); Platelet Count 237 K/mm3 (140-440); Red Blood Count 4.72 M/mm3 (3.65-5.03); Red Cell Distribution Width 12.4 % (13.2-15.2)
[2020-08-31 13:14] LABS: BUN/Creatinine Ratio 14
--- NOTE | 2020-08-31 13:48 | Emergency Department Report ---
ED Abdominal Pain HPI - General Chief Complaint: Abdominal Pain Stated Complaint: ABD PAINS Time Seen by Provider: 08/31/20 12:13 Source: patient Mode of arrival: Ambulatory Limitations: No Limitations - History of Present Illness Initial Comments: This is a 54-year-old -Mexican female in no apparent distress she reports abdominal soreness and pain around her umbilical region started on Wednesday evening associated with nausea and 2 episodes of vomiting. She denies diarrhea no fever no chills. her last bowel movement this morning was normal h er past medical history is of diabetes and hypertension. MD Complaint: abdominal pain -: Sudden Location: periumbilical Migration to: periumbilical Quality: aching Consistency: constant Improves With: nothing Worsens With: nothing Associated Symptoms: vomiting. denies: nausea, diarrhea, fever, chills, constipation, dysuria, hematemesis, hematochezia, melena, hematuria, anorexia, syncope - Related Data Previous Rx's Medication Instructions Recorded Last Taken Type Pravastatin Sodium [Pravastatin] 20 mg PO QHS #30 tablet 02/02/14 Unknown Rx Losartan [Cozaar] 100 mg PO QDAY #60 tablet 12/09/16 Unknown Rx NIFEdipine XL [Procardia Xl] 60 mg PO QDAY #30 tablet 12/09/16 Unknown Rx hydroCHLOROthiazide [HCTZ] 25 mg PO QDAY #30 tablet 12/09/16 Unknown Rx metFORMIN [Glucophage] 500 mg PO BIDDIAB #60 tablet 12/09/16 Unknown Rx guaiFENesin/CODEINE [Robitussin AC] 5 ml PO TID PRN #100 ml 03/03/18 Unknown Rx levoFLOXacin [Levaquin TAB] 500 mg PO QDAY #7 tablet 03/03/18 Unknown Rx Cyclobenzaprine [Flexeril 10 MG 10 mg PO QHS #30 tablet 08/17/18 Unknown Rx TAB] Naproxen 500 mg PO BID PRN #20 tablet 08/17/18 Unknown Rx Ibuprofen [Motrin] 600 mg PO Q8H PRN #20 tablet 09/07/19 Unknown Rx Lisinopril/Hydrochlorothiazide 1 tab PO QDAY #30 tab 09/07/19 Unknown Rx [Zestoretic 20-25 mg] Acetaminophen [Tylenol] 650 mg PO Q8HR PRN #20 capsule 07/09/20 Unknown Rx Neomycin/Bacitracin/Polymyxinb 1 applicatio TP BID #14 oint...g. 07/09/20 Unknown Rx [Triple Antibiotic Ointment] cephALEXin [Keflex] 500 mg PO QID 7 Days #28 cap 07/09/20 Unknown Rx traMADoL [Ultram 50 MG tab] 50 mg PO Q6HR PRN #10 tablet 07/09/20 Unknown Rx Naproxen [Naprosyn] 500 mg PO BID #20 tablet 07/28/20 Unknown Rx methOCARBAMOL [Robaxin TAB] 500 mg PO Q8HR PRN #20 tablet 07/28/20 Unknown Rx Ondansetron [Zofran Odt] 4 mg PO Q8HR #12 tab.rapdis 08/31/20 Unknown Rx Allergies Allergy/AdvReac Type Severity Reaction Status Date / Time No Known Allergies Allergy Unverified 08/09/13 10:18 ED Review of Systems ROS: Stated complaint: ABD PAINS Other details as noted in HPI Comment: All other systems reviewed and negative Constitutional: no symptoms reported. denies: chills, fever, malaise ENT: denies: ear pain, throat pain, dental pain Respiratory: denies: cough, orthopnea, shortness of breath, SOB with exertion, SOB at rest Cardiovascular: denies: chest pain, palpitations, dyspnea on exertion, edema, syncope, paroxysmal nocturnal dyspnea Endocrine: no symptoms reported Gastrointestinal: abdominal pain, nausea, vomiting. denies: diarrhea, consti pation, hematemesis, melena Genitourinary: denies: urgency, dysuria, hematuria, discharge Musculoskeletal: denies: back pain, joint swelling, arthralgia Skin: denies: rash, lesions Psychiatric: denies: anxiety, auditory hallucinations ED Past Medical Hx - Past Medical History Hx Hypertension: Yes Hx Congestive Heart Failure: No Hx Diabetes: Yes Hx Asthma: Yes Hx COPD: No Additional medical history: anemia, bronchitis - Surgical History Additional Surgical History: c section x 2 - Social History Smoking Status: Current Every Day Smoker - Medications Home Medications: Home Medications Medication Instructions Recorded Confirmed Last Taken Type Pravastatin Sodium [Pravastatin] 20 mg PO QHS #30 tablet 02/02/14 02/23/18 Unknown Rx Losartan [Cozaar] 100 mg PO QDAY #60 tablet 12/09/16 02/23/18 Unknown Rx NIFEdipine XL [Procardia Xl] 60 mg PO QDAY #30 tablet 12/09/16 02/23/18 Unknown Rx hydroCHLOROthiazide [HCTZ] 25 mg PO QDAY #30 tablet 12/09/16 02/23/18 Unknown Rx metFORMIN [Glucophage] 500 mg PO BIDDIAB #60 tablet 12/09/16 02/23/18 Unknown Rx guaiFENesin/CODEINE [Robitussin AC] 5 ml PO TID PRN #100 ml 03/03/18 Unknown Rx levoFLOXacin [Levaquin TAB] 500 mg PO QDAY #7 tablet 03/03/18 Unknown Rx Cyclobenzaprine [Flexeril 10 MG 10 mg PO QHS #30 tablet 08/17/18 Unknown Rx TAB] Naproxen 500 mg PO BID PRN #20 tablet 08/17/18 Unknown Rx Ibuprofen [Motrin] 600 mg PO Q8H PRN #20 tablet 09/07/19 Unknown Rx Lisinopril/Hydrochlorothiazide 1 tab PO QDAY #30 tab 09/07/19 Unknown Rx [Zestoretic 20-25 mg] Acetaminophen [Tylenol] 650 mg PO Q8HR PRN #20 capsule 07/09/20 Unknown Rx Neomycin/Bacitracin/Polymyxinb 1 applicatio TP BID #14 oint...g. 07/09/20 Unknown Rx [Triple Antibiotic Ointment] cephALEXin [Keflex] 500 mg PO QID 7 Days #28 cap 07/09/20 Unknown Rx traMADoL [Ultram 50 MG tab] 50 mg PO Q6HR PRN #10 tablet 07/09/20 Unknown Rx Naproxen [Naprosyn] 500 mg PO BID #20 tablet 07/28/20 Unknown Rx methOCARBAMOL [Robaxin TAB] 500 mg PO Q8HR PRN #20 tablet 07/28/20 Unknown Rx Ondansetron [Zofran Odt] 4 mg PO Q8HR #12 tab.rapdis 08/31/20 Unknown Rx ED Physical Exam - General Limitations: No Limitations General appearance: alert, in no apparent distress - Head Head exam: Present: atraumatic - Eye Eye exam: Present: normal appearance. Absent: conjunctival injection - ENT ENT exam: Present: mucous membranes moist - Neck Neck exam: Present: normal inspection. Absent: lymphadenopathy - Respiratory Respiratory exam: Present: normal lung sounds bilaterally. Absent: respiratory distress, wheezes, rales, rhonchi - Cardiovascular Cardiovascular Exam: Present: regular rate, normal heart sounds - GI/Abdominal GI/Abdominal exam: Present: soft, hyperactive bowel sounds. Absent: distended, tenderness, guarding, rebound, rigid, organomegaly, mass, hernia - Extremities Exam Extremities exam: Present: normal inspection - Back Exam Back exam: Present: normal inspection - Neurological Exam Neurological exam: Present: alert, oriented X3 - Psychiatric Psychiatric exam: Present: normal affect - Skin Skin exam: Present: warm, dry, intact. Absent: rash ED Course Vital Signs 08/31/20 11:08 Temperature 97.9 F Pulse Rate 111 H Respiratory 19 Rate Blood Pressure 176/103 O2 Sat by Pulse 94 Oximetry - Reevaluation(s) Reevaluation #1: 08/31/20 14:50 Patient ambulatory in the ly in no acute distress doing well results reviewed with patient ED Medical Decision Making - Lab Data Result diagrams: 08/31/20 11:41 08/31/20 11:41 - Radiology Data Radiology results: report reviewed CT of the abdomen pelvis FINDINGS: LOWER CHEST: No significant abnormality. LIVER: No significant abnormality. GALLBLADDER: No significant abnormality. BILE DUCTS: No significant abnormality. PANCREAS: No significant abnormality. SPLEEN: No significant abnormality. ADRENALS: No significant abnormality. RIGHT KIDNEY / URETER: No significant abnormality. LEFT KIDNEY / URETER: No significant abnormality. STOMACH / SMALL BOWEL: No significant abnormality. COLON: No significant abnormality. APPENDIX: No significant abnormality. PERITONEUM: No free fluid. No free air. No fluid collection. LYMPH NODES: No significant adenopathy. AORTA / ARTERIES: Mild atherosclerotic calcification without acute abnormality. IVC / VEINS: No significant abnormality. URINARY BLADDER: No significant abnormality. REPRODUCTIVE ORGANS: No significant abnormality. ADDITIONAL FINDINGS: None. - Medical Decision Making 54-year-old female with complaint of abdominal pain her labs were within normal limits CT of her abdomen and pelvis with no acute findings and her pain was relieved. While in the emergency room patient had no vomiting no diarrhea and able to tolerate liquids Critical Care Time: No Critical care attestation.: If time is entered above; I have spent that time in minutes in the direct care of this critically ill patient, excluding procedure time. ED Disposition Clinical Impression: Gastroenteritis Abdominal pain Qualifiers: Abdominal location: generalized Qualified Code(s): R10.84 - Generalized abdominal pain Disposition: -01 TO HOME OR SELFCARE Is pt being admited?: No Does the pt Need Aspirin: No Condition: Stable Instructions: Viral Gastroenteritis, Adult, Abdominal Pain, Adult, Easy-to-Re ad, Abdominal Pain (ED) Additional Instructions: Have a bland diet for the next 2 days. Your diet should include clear liquids apple juice , broth stay away from cheese and milk. Follow-up with your doctor in 3 to 5 days. Return to the emergency room for worsening pain fever inability to keep food down excessive vomiting or excessive diarrhea Prescriptions: Ondansetron [Zofran Odt] 4 mg PO Q8HR #12 tab.rapdis Referrals: PRIMARY CAREMD [Primary Care Provider] - 3-5 Days GENEVA OTERO MD [Staff Physician] - 3-5 Days Forms: Work/School Release Form(ED) Time of Disposition: 14:53
--- NOTE | 2020-08-31 14:13 | Cat Scan Report ---
CT ABDOMEN AND PELVIS WITHOUT CONTRAST INDICATION / CLINICAL INFORMATION: MAIN. TECHNIQUE: Axial CT images were obtained through the abdomen and pelvis without IV contrast. All CT scans at [facility] location are performed using CT dose reduction for ALARA by means of automated exposure control. COMPARISON: None available. FINDINGS: LOWER CHEST: No significant abnormality. LIVER: No significant abnormality. GALLBLADDER: No significant abnormality. BILE DUCTS: No significant abnormality. PANCREAS: No significant abnormality. SPLEEN: No significant abnormality. ADRENALS: No significant abnormality. RIGHT KIDNEY / URETER: No significant abnormality. LEFT KIDNEY / URETER: No significant abnormality. STOMACH / SMALL BOWEL: No significant abnormality. COLON: No significant abnormality. APPENDIX: No significant abnormality. PERITONEUM: No free fluid. No free air. No fluid collection. LYMPH NODES: No significant adenopathy. AORTA / ARTERIES: Mild atherosclerotic calcification without acute abnormality. IVC / VEINS: No significant abnormality. URINARY BLADDER: No significant abnormality. REPRODUCTIVE ORGANS: No significant abnormality. ADDITIONAL FINDINGS: None. SKELETAL SYSTEM: Mild multilevel degenerative changes are noted of the spine. No aggressive osseous l esions. IMPRESSION: 1. No acute inflammatory process of the abdomen or pelvis. Signer Name: Holger Ojeda MD Signed: 08/31/2020 2:09 PM Workstation Name: [id number]
[2020-08-31] MEDS ORDERED: HYDROcodone/ACETAMINOPHEN 5-325 MG TAB PO ONE (14:50)
== END 2020-08-31 15:02 | disposition home or self-care (01) ==
LOC: ED 11:03
DX: K52.89 Other specified noninfective gastroenteritis and colitis (principal); I10 Essential (primary) hypertension; E11.9 Type 2 diabetes mellitus without complications; J45.909 Unspecified asthma, uncomplicated; F17.200 Nicotine dependence, unspecified, uncomplicated; Z86.2 Personal history of diseases of the blood and blood-forming organs and certain disorders involving the immune mechanism
CPT/HCPCS: 36415; 74176; 80053; 81001; 83690; 85025

== ENCOUNTER 2020-09-29 14:36 | Emergency (ER) | payer SELFPAY | END 2020-09-29 18:38 | disposition left against medical advice (07) | LOC: ED 14:36 | DX: R41.82 Altered mental status, unspecified (principal); Z53.21 Procedure and treatment not carried out due to patient leaving prior to being seen by health care provider ==

== ENCOUNTER 2020-09-30 12:49 | Emergency (ER) | payer SELFPAY ==
[2020-09-30 13:16] VITALS: BP 183/106
== END 2020-09-30 14:00 ==
LOC: ED 12:49
DX: I10 Essential (primary) hypertension (principal); Z53.21 Procedure and treatment not carried out due to patient leaving prior to being seen by health care provider

== ENCOUNTER 2021-05-05 11:48 | Emergency (ER) | payer SELFPAY ==
[2021-05-05 12:13] VITALS: BP 163/96
[2021-05-05] MEDS ORDERED: ASPIRIN 325 MG TAB PO ONE (12:14)
--- NOTE | 2021-05-05 12:33 | XRay Report ---
CHEST 2 VIEWS INDICATION / CLINICAL INFORMATION: Chest pain. COMPARISON: None available. FINDINGS: SUPPORT DEVICES: None. HEART / MEDIASTINUM: No significant abnormality. LUNGS / PLEURA: No significant pulmonary or pleural abnormality. No pneumothorax. ADDITIONAL FINDINGS: No significant additional findings. IMPRESSION: 1. No acute findings. Signer Name: Mina Rivera MD Signed: 05/05/2021 12:29 PM Workstation Name: [id number]
--- NOTE | 2021-05-05 12:34 | Event Note ---
ED Screening Note Date of service: 05/05/21 Time: 12:19 ED Screening Note: Patient presents to the ER today with complaints of diffuse chest pain which started yesterday with associated cough and shortness of breath. She states that the chest pain is worse when she coughs. She reports subjective fever, nausea and vomiting. She denies any wheezing. She states that she took both for Covid 19 vaccines ([employer] ) 2 months ago. Past medical history significant for diabetes, hypertension and tobacco use. This initial assessment/diagnostic orders/clinical plan/treatment(s) is/are subject to change based on patients health status, clinical progression and re- assessment by fellow clinical providers in the ED. Further treatment and workup at subsequent clinical providers discretion. Patient/guardian urged not to elope from the ED as their condition may be serious if not clinically assessed and managed. Initial orders include: Chest pain order set
[2021-05-05 13:47] LABS: Basophils # (Auto) 0.1 K/mm3 (0.0-0.1); Basophils % (Auto) 1.2 % (0.0-1.8); Eosinophils # (Auto) 0.1 K/mm3 (0.0-0.4); Eosinophils % (Auto) 0.8 % (0.0-4.3); Hematocrit 47.5 % (30.3-42.9); Hemoglobin 16.1 gm/dl (10.1-14.3); Lymphocytes # (Auto) 1.8 K/mm3 (1.2-5.4); Lymphocytes % (Auto) 25.2 % (13.4-35.0); Mean Corpuscular HGB Conc 34 % (30-34); Mean Corpuscular Volume 95 fl (79-97); Monocytes # (Auto) 0.4 K/mm3 (0.0-0.8); Monocytes % (Auto) 6.1 % (0.0-7.3); Platelet Count 257 K/mm3 (140-440); Red Blood Count 5.02 M/mm3 (3.65-5.03); Red Cell Distribution Width 13.1 % (13.2-15.2)
[2021-05-05 13:58] LABS: Alanine Aminotransferase 36 units/L (7-56); Albumin 4.6 g/dL (3.9-5); Blood Urea Nitrogen 5 mg/dL (7-17); Calcium 10.1 mg/dL (8.4-10.2); Hemolysis Index 21
[2021-05-05 13:59] LABS: BUN/Creatinine Ratio 7
--- NOTE | 2021-05-06 18:07 | Electrocardiograph Report ---
[facility] Test Date: 2021-05-05 Test Time: 12:04:24 Pat Name: SCOOBY ADEN Department: Room: Gender: F Web Engineer: SEAN : 1965 Requested By: ED DOC Order Number: [id number] Reading MD: Lucero Hung Measurements Intervals [place] Rate: 121 P: 68 MO: 131 QRS: 23 QRSD: 80 T: 187 QT: 309 QTc: 439 Interpretive Statements Sinus tachycardia Probable left atrial enlargement Nonspecific repol abnormality, diffuse leads No previous ECG available for comparison Electronically Signed On 05-06-2021 18:06:30 EDT by Lucero Hung
== END 2021-05-05 15:58 | disposition left against medical advice (07) ==
LOC: ED 11:48
DX: R07.9 Chest pain, unspecified (principal); Z53.21 Procedure and treatment not carried out due to patient leaving prior to being seen by health care provider
CPT/HCPCS: 36415; 71046; 80053; 84484; 85025; 93005